=== PATIENT | female | born 1930 | race Caucasian/White ===

== ENCOUNTER 2020-03-08 17:32 | Inpatient (IN) | payer MEDICARE ==
[2020-03-08] MEDS ORDERED: SODIUM CHLORIDE 0.9% 1,000 ML IV STA ×2 (17:44)
[2020-03-08] MEDS ORDERED: IBUPROFEN 600 MG TAB PO STA (17:44)
[2020-03-08] MEDS ORDERED: ACETAMINOPHEN TAB 500 MG TAB PO STA (17:44)
--- NOTE | 2020-03-08 17:45 | ED ---
SOB HPI - General Chief Complaint: Shortness of Breath Stated Complaint: Cough,Fever sent from urgent care Time Seen by Provider: 03/08/20 17:44 Source: patient, RN notes reviewed, old records reviewed Mode of arrival: wheelchair Limitations: no limitations - History of Present Illness Initial Comments: This is an 81-year-old female DF she presents today for evaluation regards to shortness of breath some weakness and fever. Patient has no underlying bleeding disorder. Patient has been staying at [facility] is a new living situation for her. No known positive sick contacts recent hospitalization about 2 months ago after she had a significant follow-up multiple rib fractures. Otherwise patient presents for fever shortness of breath has no other significant complaints MD Complaint: shortness of breath, cough -: days(s) Severity: moderate Severity scale (1-10): 4 Consistency: constant Improves With: nothing Worsens With: nothing Context: recent URI, choking/aspiration, recent illness Associated Symptoms: fever, cough, sputum production, palpitations Treatments Prior to Arrival: none - Related Data Allergies Allergy/AdvReac Type Severity Reaction Status Date / Time Penicillins AdvReac Rash/Hives Verified 03/08/20 17:40 Review of Systems ROS Statement: Those systems with pertinent positive or pertinent negative responses have been documented in the HPI. ROS Other: All systems not noted in ROS Statement are negative. Past Medical History Past Medical History: CVA/TIA, Dementia, Hypertension History of Any Multi-Drug Resistant Organisms: None Reported Past Surgical History: Hernia Repair Past Psychological History: No Psychological Hx Reported Smoking Status: Never smoker Past Alcohol Use History: None Reported Past Drug Use History: None Reported General Exam Limitations: no limitations General appearance: alert, in no apparent distress Head exam: Present: atraumatic, normocephalic, normal inspection Eye exam: Present: normal appearance, PERRL, EOMI. Absent: scleral icterus, conjunctival injection, periorbital swelling ENT exam: Present: normal exam, mucous membranes moist Neck exam: Present: normal inspection. Absent: tenderness, meningismus, lymphadenopathy Respiratory exam: Present: normal lung sounds bilaterally. Absent: respiratory distress, wheezes, rales, rhonchi, stridor Cardiovascular Exam: Present: normal rhythm, tachycardia, normal heart sounds. Absent: systolic murmur, diastolic murmur, rubs, gallop, clicks GI/Abdominal exam: Present: soft, normal bowel sounds. Absent: distended, tenderness, guarding, rebound, rigid Extremities exam: Present: normal inspection, full ROM, normal capillary refill. Absent: tenderness, pedal edema, joint swelling, calf tenderness Back exam: Present: normal inspection Neurological exam: Present: alert, oriented X3, CN II-XII intact Psychiatric exam: Present: normal affect, normal mood Skin exam: Present: warm, dry, intact, normal color. Absent: rash Course Vital Signs 03/08/20 17:36 Temperature 97.5 F L Pulse Rate 116 H Respiratory 20 Rate Blood Pressure 148/80 O2 Sat by Pulse 96 Oximetry - Reevaluation(s) Reevaluation #1: 03/08/20 18:07 Medical records reviewed Reevaluation #2: 03/08/20 19:27 Patient is in no acute distress Reevaluation #3: 03/08/20 19:27 Spoke with family regarding findings and questions are answered Medical Decision Making - Medical Decision Making 81 female DF for evaluation likely pneumonia with effusion. Patient will be admitted for IV antibiotics, breathing treatments as needed and cardiopulmonary observation to rule out covert - Lab Data Result diagrams: 03/08/20 18:28 03/08/20 18:28 Lab Results 03/08/20 03/08/20 03/08/20 Range/Units 18:28 18:28 18:28 WBC 15.7 H (3.8-10.6) k/uL RBC 4.11 (3.80-5.40) m/uL Hgb 12.1 (11.4-16.0) gm/dL Hct 36.6 (34.0-46.0) % MCV 89.1 (80.0-100.0) fL MCH 29.4 (25.0-35.0) pg MCHC 33.0 (31.0-37.0) g/dL RDW 13.3 (11.5-15.5) % Plt Count 322 (150-450) k/uL Neutrophils % 88 % Lymphocytes % 4 % Monocytes % 6 % Eosinophils % 0 % Basophils % 0 % Neutrophils # 13.8 H (1.3-7.7) k/uL Lymphocytes # 0.7 L (1.0-4.8) k/uL Monocytes # 1.0 (0-1.0) k/uL Eosinophils # 0.0 (0-0.7) k/uL Basophils # 0.0 (0-0.2) k/uL PT 10.4 (9.0-12.0) sec INR 1.0 (<1.2) APTT 28.5 (22.0-30.0) sec Sodium 128 L (137-145) mmol/L Potassium 3.5 (3.5-5.1) mmol/L Chloride 98 (98-107) mmol/L Carbon Dioxide 22 (22-30) mmol/L Anion Gap 8 mmol/L BUN 9 (7-17) mg/dL Creatinine 0.36 L (0.52-1.04) mg/dL Est GFR (CKD-EPI)AfAm >90 (>60 ml/min/1.73 sqM) Est GFR (CKD-EPI)NonAf >90 (>60 ml/min/1.73 sqM) Glucose 117 H (74-99) mg/dL Plasma Lactic Acid Marco (0.7-2.0) mmol/L Calcium 9.0 (8.4-10.2) mg/dL Phosphorus 3.1 (2.5-4.5) mg/dL Magnesium 1.7 (1.6-2.3) mg/dL Total Bilirubin 1.4 H (0.2-1.3) mg/dL AST 18 (14-36) U/L ALT 10 (4-34) U/L Alkaline Phosphatase 112 (38-126) U/L Creatine Kinase 67 (30-135) U/L Troponin I (0.000-0.034) ng/mL NT-Pro-B Natriuret Pep pg/mL Total Protein 6.0 L (6.3-8.2) g/dL Albumin 3.3 L (3.5-5.0) g/dL 03/08/20 03/08/20 03/08/20 Range/Units 18:28 18:28 18:28 WBC (3.8-10.6) k/uL RBC (3.80-5.40) m/uL Hgb (11.4-16.0) gm/dL Hct (34.0-46.0) % MCV (80.0-100.0) fL MCH (25.0-35.0) pg MCHC (31.0-37.0) g/dL RDW (11.5-15.5) % Plt Count (150-450) k/uL Neutrophils % % Lymphocytes % % Monocytes % % Eosinophils % % Basophils % % Neutrophils # (1.3-7.7) k/uL Lymphocytes # (1.0-4.8) k/uL Monocytes # (0-1.0) k/uL Eosinophils # (0-0.7) k/uL Basophils # (0-0.2) k/uL PT (9.0-12.0) sec INR (<1.2) APTT (22.0-30.0) sec Sodium (137-145) mmol/L Potassium (3.5-5.1) mmol/L Chloride (98-107) mmol/L Carbon Dioxide (22-30) mmol/L Anion Gap mmol/L BUN (7-17) mg/dL Creatinine (0.52-1.04) mg/dL Est GFR (CKD-EPI)AfAm (>60 ml/min/1.73 sqM) Est GFR (CKD-EPI)NonAf (>60 ml/min/1.73 sqM) Glucose (74-99) mg/dL Plasma Lactic Acid Marco 1.1 (0.7-2.0) mmol/L Calcium (8.4-10.2) mg/dL Phosphorus (2.5-4.5) mg/dL Magnesium (1.6-2.3) mg/dL Total Bilirubin (0.2-1.3) mg/dL AST (14-36) U/L ALT (4-34) U/L Alkaline Phosphatase (38-126) U/L Creatine Kinase (30-135) U/L Troponin I <0.012 (0.000-0.034) ng/mL NT-Pro-B Natriuret Pep 727 pg/mL Total Protein (6.3-8.2) g/dL Albumin (3.5-5.0) g/dL - EKG Data -: EKG Interpreted by Me (EKG shows sinus tach rate of 107 MS 158 QRS 84 QTc 470) - Radiology Data Radiology results: report reviewed (Chest x-rays positive for effusion likely pneumonia), image reviewed Disposition Clinical Impression: Community acquired pneumonia, Pleural effusion Disposition: ADMITTED IP TO THIS HOSP Condition: Good Is patient prescribed a controlled substance at d/c from ED?: No Referrals: Chaparrita Lopez MD [Primary Care Provider] - 1-2 days
[2020-03-08 18:33] LABS: Basophils % (A) 0 %; Eosinophils % (A) 0 %; HCT 36.6 % (34.0-46.0); HGB 12.1 gm/dL (11.4-16.0); Lymphocytes # (A) 0.7 k/uL (1.0-4.8); Lymphocytes % (A) 4 %; MCH 29.4 pg (25.0-35.0); MCV 89.1 fL (80.0-100.0); Mean Platelet Volume 6.5; Monocytes % (A) 6 %; Neutrophils # (A) 13.8 k/uL (1.3-7.7); Neutrophils % (A) 88 %; Platelet Count 322 k/uL (150-450); RBC 4.11 m/uL (3.80-5.40); RDW 13.3 % (11.5-15.5); WBC 15.7 k/uL (3.8-10.6)
--- NOTE | 2020-03-08 18:39 | XR ---
EXAMINATION TYPE: XR chest 2V DATE OF EXAM: 03/08/2020 COMPARISON: None INDICATION: Weakness cough fever short of breath TECHNIQUE: Frontal and lateral views of the chest are obtained. FINDINGS: The heart size is normal. The pulmonary vasculature is normal. There is blunting left costophrenic angle. Small left pleural effusion may be present. Multiple old posterior lateral left-sided rib fractures are evident. No acute rib fractures are ident ified. No pneumothorax is evident. IMPRESSION: 1. There may be a small left pleural effusion.
[2020-03-08 18:41] LABS: ALT 10 U/L (4-34); AST 18 U/L (14-36); African American GFR (CKD) >90 (>60 ml/min/1.73 sqM); Albumin 3.3 g/dL (3.5-5.0); Alkaline Phosphatase 112 U/L (38-126); Anion Gap 8 mmol/L; Blood Urea Nitrogen 9 mg/dL (7-17); Carbon Dioxide 22 mmol/L (22-30); Chloride 98 mmol/L (98-107); Creatine Kinase 67 U/L (30-135); Glucose 117 mg/dL (74-99); Magnesium 1.7 mg/dL (1.6-2.3); Non-African American GFR(CKD) >90 (>60 ml/min/1.73 sqM); Partial Thromboplastin Time 28.5 sec (22.0-30.0); Phosphorus 3.1 mg/dL (2.5-4.5); Potassium 3.5 mmol/L (3.5-5.1); Prothrombin Time 10.4 sec (9.0-12.0); Sodium 128 mmol/L (137-145); Total Bilirubin 1.4 mg/dL (0.2-1.3)
[2020-03-08] MEDS ORDERED: PNEUMONIA PROTOCOL UTILIZED 1 EACH MISC PO PRN (19:23)
[2020-03-08] MEDS ORDERED: IPRATROPIUM-ALBUTEROL 3 ML NEB INHALATION STA (19:23)
[2020-03-08] MEDS ORDERED: AZITHROMYCIN 500 MG in SODIUM CHLORIDE 0.9% 250 ML IVPB STA (19:23)
[2020-03-08] MEDS ORDERED: IPRATROPIUM-ALBUTEROL 3 ML NEB INHALATION PRN (19:23)
[2020-03-08] MEDS: SODIUM CHLORIDE 0.9% 1,000 ML IV SCH (23:42)
[2020-03-09 06:58] LABS: Basophils % (A) 0 %; Eosinophils # (A) 0.1 k/uL (0-0.7); Eosinophils % (A) 1 %; HCT 32.5 % (34.0-46.0); HGB 10.7 gm/dL (11.4-16.0); Lymphocytes # (A) 0.6 k/uL (1.0-4.8); Lymphocytes % (A) 4 %; MCH 29.9 pg (25.0-35.0); MCHC 32.8 g/dL (31.0-37.0); MCV 91.2 fL (80.0-100.0); Mean Platelet Volume 6.4; Monocytes # (A) 0.9 k/uL (0-1.0); Monocytes % (A) 7 %; Neutrophils # (A) 11.9 k/uL (1.3-7.7); Neutrophils % (A) 88 %; Platelet Count 309 k/uL (150-450); RBC 3.56 m/uL (3.80-5.40); RDW 13.7 % (11.5-15.5); WBC 13.6 k/uL (3.8-10.6)
[2020-03-09] MEDS: ENOXAPARIN 40 MG/0.4 ML SYRINGE SQ SCH (09:06)
[2020-03-09] MEDS: AZITHROMYCIN 500 MG TAB PO SCH (09:23)
[2020-03-09 09:48] LABS: African American GFR (CKD) 118.5 (60.0-200.0); Albumin 2.8 g/dL (3.80-4.90); Albumin/Globulin Ratio 1.65 (1.60-3.17); Anion Gap 6.2 mmol/L (4.00-12.00); BUN/Creat Ratio 23.33 Ratio (12.00-20.00); Carbon Dioxide 24.8 mmol/L (21.6-31.8); Globulin 1.7 g/dL (1.6-3.3); Non-African American GFR(CKD) 102.2 (60.0-200.0); Potassium 3.3 mmol/L (3.5-5.5); Total Bilirubin 0.8 mg/dL (0.3-1.2); Total Protein 4.5 g/dL (6.2-8.2)
--- NOTE | 2020-03-09 10:14 | XR ---
EXAMINATION TYPE: XR chest 2V DATE OF EXAM: 03/09/2020 COMPARISON: Chest x-ray from yesterday. HISTORY: Pneumonia, abnormal x-ray. TECHNIQUE: Frontal and lateral views of the chest are obtained. FINDINGS: There is chronic parenchymal change with persistent small left greater than right pleural effusions and associated left basilar atelectasis and/or infiltrate. The cardiac silhouette size rem ains within normal limits without focal sclerotic changes aortic knob. Multiple old posterior left mi d rib fractures redemonstrated. IMPRESSION: Chronic changes with small left greater than right pleural effusions and associated left basilar compressive atelectasis and/or less likely acute infiltrate redemonstrated. No significant c hange from one day earlier.
--- NOTE | 2020-03-09 12:28 | P.CNPUL ---
History of Present Illness Consult date: 03/09/20 Requesting physician: Lea De La Torre Reason for consult: dyspnea, abnormal CXR/CT (Chronic changes with bilateral pleural effusions and compressive atelectasis) Chief complaint: Shortness of breath, fever, sore throat, diarrhea History of present illness: This is a pleasant 89-year-old female patient who follows with Dr. Lopez as her primary care provider. She has a history of dementia, hypertension, CVA/TIA. She is a lifelong nonsmoker. She was brought to the emergency room yesterday from [facility] [place] after being seen in urgent care for cough and fever. Chest x-ray showed chronic changes with small left greater than right pleural effusions and associated left basilar compressive atelectasis. White count 13.6. Hemoglobin 10.7. Sodium 137. Potassium 3.3. Creatinine 0.3. Lactic acid 1.1. She is seen today in consultation on the regular medical floor. She is currently sitting up in a chair at the bedside. Awake and alert in no acute distress. Maintaining O2 saturations in the 90s on 2 L/m per nasal cannula. She's been afebrile. Sputum culture pending. She's been initiated on DuoNeb inhalations, ceftriaxone and azithromycin. Lovenox for DVT prophylaxis. She received 1 L of fluid resuscitation and his son 0.9 normal sinus 100 ML's per hour. Review of Systems REVIEW OF SYSTEMS: CONSTITUTIONAL: Denies any recent significant weight loss or weight gain. EYES: Denies change in vision. EARS, NOSE, MOUTH, THROAT: Sore throat, hoarseness CARDIOVASCULAR: Denies chest pain, palpitations or syncopal episodes. RESPIRATORY: Positive for shortness of breath, cough, congestion no hemoptysis. GASTROINTESTINAL: Denies change in appetite, denies abdominal pain GENITOURINARY: Denies hematuria, denies infections. MUSKULOSKELETAL: Denies pain, denies swelling. INTEGUMENTARY: Denies rash, denies eczema. NEUROLOGICAL: Denies recent memory loss, no recent seizure activity. PSYCHIATRIC: Denies anxiety, denies depression. HEMATOLOGIC/LYMPHATIC: Denies anemia, denies enlarged lymph nodes. Past Medical History Past Medical History: CVA/TIA, Dementia, Hypertension Additional Past Medical History / Comment(s): Fall 01/14/2020- in ICU at [place]. injury to left ribs and right ankle. right ankle foot drop residual. History of Any Multi-Drug Resistant Organisms: None Reported Past Surgical History: Hernia Repair Past Anesthesia/Blood Transfusion Reactions: No Reported Reaction Past Psychological History: No Psychological Hx Reported Additional Psychological History / Comment(s): Patient is a devout [employer]. Had 10 kids. Newly resides at [facility], currently on a trial period. Smoking Status: Never smoker Past Alcohol Use History: None Reported Past Drug Use History: None Reported Medications and Allergies Home Medications Medication Instructions Recorded Confirmed Type Acetaminophen Tab [Tylenol] 650 mg PO Q6H PRN 03/08/20 03/08/20 History Aspirin 81 mg PO HS@199903/08/20 03/08/20 History Donepezil [Aricept] 5 mg PO HS@199903/08/20 03/08/20 History Sodium Chloride Tab 1 gm PO BID 03/08/20 03/08/20 History amLODIPine [Norvasc] 2.5 mg PO DAILY 03/08/20 03/08/20 History Allergies Allergy/AdvReac Type Severity Reaction Status Date / Time Penicillins AdvReac Rash/Hives Verified 03/08/20 19:33 Physical Exam Vitals: Vital Signs Temp Pulse Pulse Resp BP BP Pulse Ox 03/09/20 08:00 92 17 03/09/20 07:00 97.8 F 92 17 150/74 97 03/09/20 03:33 18 95 03/09/20 02:46 20 92 L 03/09/20 01:17 97.9 F 89 18 122/71 97 03/09/20 00:00 90 18 03/08/20 22:05 97.6 F 96 16 115/65 96 03/08/20 21:00 91 18 113/60 96 03/08/20 20:22 97.8 F 03/08/20 19:53 109 H 18 03/08/20 19:47 98 18 138/91 96 03/08/20 19:44 103 H 20 03/08/20 17:36 97.5 F L 116 H 20 148/80 96 Intake and Output 03/08/20 03/09/20 03/09/20 22:59 06:59 14:59 Other: Voiding Method Toilet Toilet Diaper Diaper # Voids 1 Weight 49.442 kg GENERAL EXAM: Alert, pleasant 89-year-old female patient, on 2 L nasal cannula, in chair at the bedside, comfortable in no apparent distress. HEAD: Normocephalic. EYES: Normal reaction of pupils, equal size. NOSE: Clear with pink turbinates. THROAT: No erythema or exudates. NECK: No masses, no JVD. CHEST: No chest wall deformity. LUNGS: Equal air entry with faint crackles in the posterior bases. CVS: S1 and S2 normal with no audible murmur, regular rhythm. ABDOMEN: No hepatosplenomegaly, normal bowel sounds, no guarding or rigidity. SPINE: No scoliosis or deformity SKIN: No rashes CENTRAL NERVOUS SYSTEM: No focal deficits, tone is normal in all 4 extremities. EXTREMITIES: There is no peripheral edema. No clubbing, no cyanosis. Peripheral pulses are intact. Results - Laboratory Findings CBC and BMP: 03/09/20 06:32 03/09/20 06:32 PT/INR, D-dimer PT 10.4 sec (9.0-12.0) 03/08/20 18:28 INR 1.0 (<1.2) 03/08/20 18:28 Abnormal lab findings: Abnormal Labs 03/08/20 03/08/20 03/09/20 18:28 18:28 06:32 WBC 15.7 H 13.6 H RBC 3.56 L Hgb 10.7 L Hct 32.5 L Neutrophils # 13.8 H 11.9 H Lymphocytes # 0.7 L 0.6 L Sodium 128 L Potassium BUN Creatinine 0.36 L BUN/Creatinine Ratio Glucose 117 H Calcium Total Bilirubin 1.4 H AST Total Protein 6.0 L Albumin 3.3 L 03/09/20 06:32 WBC RBC Hgb Hct Neutrophils # Lymphocytes # Sodium Potassium 3.3 L BUN 7.0 L Creatinine 0.3 L BUN/Creatinine Ratio 23.33 H Glucose Calcium 8.0 L Total Bilirubin AST 11 L Total Protein 4.5 L Albumin 2.80 L - Diagnostic Findings Chest x-ray: image reviewed Assessment and Plan Assessment: 1 Purulent tracheobronchitis, sputum culture pending CoVID screen pending 2 Leukocytosis secondary to above 3 Hyponatremia, corrected 4 History of hypertension 5 Dementia Plan: The patient was seen and evaluated by Dr. Santacruz Chest x-rays and labs reviewed Continue ceftriaxone and azithromycin Bronchodilators as needed Sputum culture pending We will continue to follow and make further recommendations based on her clinical status. I, the cosigning physician, performed a history & physical examination of the patient. Lungs sounds faint crackles in the posterior bases. Maintaining good O2 saturations in the 90s on 2 L/m per nasal cannula. I discussed the assessment and plan of care with my nurse practitioner, Shannan Katz. I attest to the above consultation as dictated by her. Time with Patient: Greater than 30
[2020-03-09] MEDS ORDERED: HYDROcodone/APAP 5-325MG 1 EACH TAB PO PRN (14:04)
[2020-03-09] MEDS ORDERED: ALPRAZolam 0.25 MG TAB PO PRN (14:04)
[2020-03-09] MEDS ORDERED: Potassium Replacement Protocol 1 EACH MISC MISCELLANE PRN (14:05)
[2020-03-09] MEDS ORDERED: Magnesium Replacement Protocol 1 EACH MISC MISCELLANE PRN (14:05)
[2020-03-09 14:24] VITALS: BMI 18.7
--- NOTE | 2020-03-09 14:42 | HP ---
HISTORY AND PHYSICAL CHIEF COMPLAINT: Shortness of breath and cough. HISTORY OF PRESENT ILLNESS: This 89-year-old woman with a past medical history of multiple medical problems including CVA, TIA, dementia, history of hypertension, was recently in [facility] ICU because of injury to the left ribs and left ankle and right ankle footdrop residual was noted and the patient apparently was having inpatient rehab at [facility]. The patient is complaining of some shortness of breath and fever and cough. The patient came to [facility] and was admitted for further evaluation and treatment. Possible pneumonia with pleural effusion suspected. Pulmonology evaluation in progress. There is no history of any fever, rigors, chills. No history of headache, loss of consciousness, seizures. PAST MEDICAL HISTORY: History of CVA, TIA, dementia, hypertension, history of recent rib fractures. MEDICATIONS: Norvasc, sodium chloride tablet, Aricept, aspirin, Tylenol. ALLERGIES: PENICILLIN. FAMILY HISTORY: No history of heart disease or strokes in the family. SOCIAL HISTORY: No history of smoking. No history of alcohol intake. No substance abuse. REVIEW OF SYSTEMS: ENT: No diminished vision or hearing. CARDIOVASCULAR: No angina or palpitations. RESPIRATORY: As mentioned earlier. GI: As mentioned earlier. : Negative. NERVOUS SYSTEM: As mentioned earlier. ALLERGY/IMMUNOLOGY: No asthma or hayfever. MUSCULOSKELETAL: As mentioned earlier. MUSCULOSKELETAL: As mentioned earlier. HEMATOLOGY/ONCOLOGY: History of anemia. ENDOCRINE: No history of diabetes or hypothyroidism. CONSTITUTIONAL: As mentioned earlier. DERMATOLOGY: Negative. RHEUMATOLOGY: Negative. PSYCHIATRY: As mentioned earlier. PHYSICAL EXAM: Patient is alert, oriented x3. The pulse is 92, blood pressure 150/74, respiration 17, temperature 97.8, pulse ox 97% on 3 L. HEENT: Conjunctivae normal. NECK: No JVD. CARDIOVASCULAR: S1 and S2 muffled. RESPIRATORY: Diminished breath sounds in the bases with a few scattered rhonchi and crackles. Expiratory wheezing also present. ABDOMEN: Soft, nontender. EXTREMITIES: Legs no edema, no swelling. NERVOUS SYSTEM: Higher functions as mentioned earlier. Moves all 4 limbs, no focal deficits. LYMPHATICS: No lymph nodes in the neck or axillae. SKIN: No ulcers or rashes. JOINTS: No active deforming arthropathy. LABS: WBC 13.2, hemoglobin 10.7 sodium 137, potassium 3.3 and glucose 117. The albumin is 2.8. ASSESSMENT: 1. Chronic obstructive pulmonary disease acute exacerbation with possible acute purulent tracheobronchitis, possible acute bronchopneumonia bilateral. 2. Left pleural effusion. 3. Hyponatremia. 4. Increased WBC. 5. Hypokalemia. 6. History of cerebrovascular accident and transient ischemic attack. 7. History of dementia. 8. Hypertension. 9. History of recent fall and injury to the left rib and right ankle. 10.History of hernia repair. 11.Gait dysfunction. RECOMMENDATIONS AND DISCUSSION: In this 89-year-old woman who was admitted with multiple medical issues, at this time I recommend to continue current medications. We will optimize bronchodilators, empiric antibiotics and IV steroids. Follow with Pulmonary. Will monitor the chest x-ray and pleural effusion also. Otherwise, COVID-19 will be tested. Home medications will be continued. Prognosis is extremely guarded because of multiple complex medical issues. Further recommendations to follow. MMODL / IJN: [id number] /
[2020-03-09] MEDS: methylPREDNISolone SOD SUCCI 125 MG/2 ML VIAL IV SCH ×2 (15:49→17:03)
[2020-03-09] MEDS: POTASSIUM CHLORIDE ER 20 MEQ TAB.ER PO SCH ×2 (15:50→17:03)
[2020-03-09 16:32] LABS: Glucose,Whole Blood 112 mg/dL (75-99)
[2020-03-09] MEDS: INSULIN ASPART (NovoLOG) 100 UNIT/ML VIAL SQ SCH ×2 (16:42→22:06)
[2020-03-09] MEDS: ASPIRIN 81 MG PO SCH (19:47)
[2020-03-09] MEDS: DONEPEZIL 5 MG TAB PO SCH (19:47)
[2020-03-09] MEDS: SODIUM CHLORIDE TAB 1 GM TAB PO SCH (19:47)
[2020-03-09 21:22] LABS: Glucose,Whole Blood 182 mg/dL (75-99)
[2020-03-10] MEDS: methylPREDNISolone SOD SUCCI 125 MG/2 ML VIAL IV SCH ×4 (00:52→17:29)
[2020-03-10] MEDS: SODIUM CHLORIDE 0.9% 1,000 ML IV SCH (00:55)
[2020-03-10 06:49] LABS: Basophils % (A) 0 %; Eosinophils % (A) 0 %; HCT 35.2 % (34.0-46.0); HGB 11.9 gm/dL (11.4-16.0); Lymphocytes # (A) 0.4 k/uL (1.0-4.8); Lymphocytes % (A) 5 %; MCHC 33.9 g/dL (31.0-37.0); MCV 91.4 fL (80.0-100.0); Mean Platelet Volume 6.6; Monocytes # (A) 0.2 k/uL (0-1.0); Monocytes % (A) 2 %; Neutrophils # (A) 7.5 k/uL (1.3-7.7); Neutrophils % (A) 92 %; Platelet Count 358 k/uL (150-450); RBC 3.86 m/uL (3.80-5.40); RDW 13.7 % (11.5-15.5); WBC 8.1 k/uL (3.8-10.6)
[2020-03-10] MEDS: PANTOPRAZOLE 40 MG TABLET PO SCH (07:17)
[2020-03-10] MEDS: amLODIPine 2.5 MG TAB PO SCH (07:17)
[2020-03-10] MEDS: SODIUM CHLORIDE TAB 1 GM TAB PO SCH ×2 (07:17→22:26)
[2020-03-10] MEDS: AZITHROMYCIN 500 MG TAB PO SCH (07:17)
[2020-03-10 07:19] LABS: Glucose,Whole Blood 146 mg/dL (75-99)
[2020-03-10] MEDS: ENOXAPARIN 40 MG/0.4 ML SYRINGE SQ SCH (07:20)
[2020-03-10] MEDS: INSULIN ASPART (NovoLOG) 100 UNIT/ML VIAL SQ SCH ×4 (08:40→22:25)
[2020-03-10 09:47] LABS: African American GFR (CKD) 118.5 (60.0-200.0); Anion Gap 7.5 mmol/L (4.00-12.00); BUN/Creat Ratio 33.33 Ratio (12.00-20.00); Calcium 8.5 mg/dL (8.7-10.3); Carbon Dioxide 24.5 mmol/L (21.6-31.8); Magnesium 1.6 mg/dL (1.5-2.4); Non-African American GFR(CKD) 102.2 (60.0-200.0); Potassium 3.7 mmol/L (3.5-5.5)
[2020-03-10 11:47] LABS: Glucose,Whole Blood 146 mg/dL (75-99)
--- NOTE | 2020-03-10 13:21 | P.PN ---
Subjective Progress Note Date: 03/10/20 Principal diagnosis: Purulent tracheobronchitis. This is a pleasant 89-year-old female patient who follows with Dr. Lopez as her primary care provider. She has a history of dementia, hypertension, CVA/TIA. She is a lifelong nonsmoker. She was brought to the emergency room yesterday from [facility] on the [place] after being seen in urgent care for cough and fever. Chest x-ray showed chronic changes with small left greater than right pleural effusions and associated left basilar compressive atelectasis. White count 13.6. Hemoglobin 10.7. Sodium 137. Potassium 3.3. Creatinine 0.3. Lactic acid 1.1. She is seen today in consultation on the regular medical floor. She is currently sitting up in a chair at the bedside. Awake and alert in no acute distress. Maintaining O2 saturations in the 90s on 2 L/m per nasal cannula. She's been afebrile. Sputum culture pending. She's been initiated on DuoNeb inhalations, ceftriaxone and azithromycin. Lovenox for DVT prophylaxis. She received 1 L of fluid resuscitation and his son 0.9 normal sinus 100 ML's per hour. Patient is seen today 12/09 2019 in follow-up on the medical floor. She is currently sitting up in a chair at the bedside. Awake and alert in no acute distress. Breathing easier today as compared to yesterday. Maintaining good O2 saturation in the mid 90s on room air. She's been afebrile. Hemodynamically stable. Blood and sputum cultures pending. White count 8.1. Hemoglobin 11.9. 7. Potassium 3.7. Creatinine 0.3. CoVID 19 screen still pending. She remains on ceftriaxone and azithromycin. Objective - Vital Signs Vital signs: Vital Signs Temp 97.5 F L 03/10/20 07:00 Pulse 87 03/10/20 08:00 Resp 16 03/10/20 08:00 BP 146/72 03/10/20 07:00 Pulse Ox 98 03/10/20 07:00 Intake & Output 03/09/20 03/10/20 03/10/20 18:59 06:59 18:59 Intake Total 220 Balance 220 Weight 49.442 kg Intake: Oral 220 Other: Voiding Method Toilet Toilet Toilet Diaper Diaper Diaper # Voids 3 1 1 # Bowel Movements 2 - Exam GENERAL EXAM: Alert, pleasant 89-year-old female patient, on room air, in chair at the bedside, comfortable in no apparent distress. HEAD: Normocephalic. EYES: Normal reaction of pupils, equal size. NOSE: Clear with pink turbinates. THROAT: No erythema or exudates. NECK: No masses, no JVD. CHEST: No chest wall deformity. LUNGS: Equal air entry with faint crackles in the posterior bases. CVS: S1 and S2 normal with no audible murmur, regular rhythm. ABDOMEN: No hepatosplenomegaly, normal bowel sounds, no guarding or rigidity. SPINE: No scoliosis or deformity SKIN: No rashes CENTRAL NERVOUS SYSTEM: No focal deficits, tone is normal in all 4 extremities. EXTREMITIES: There is no peripheral edema. No clubbing, no cyanosis. Peripheral pulses are intact. - Labs CBC & Chem 7: 03/10/20 06:26 03/10/20 06:26 Labs: Abnormal Lab Results - Last 24 Hours (Table) 03/09/20 03/09/20 03/10/20 Range/Units 16:29 21:20 06:26 Lymphocytes # 0.4 L (1.0-4.8) k/uL Creatinine (0.6-1.5) mg/dL BUN/Creatinine Ratio (12.00-20.00) Ratio Glucose (70-110) mg/dL POC Glucose (mg/dL) 112 H 182 H (75-99) mg/dL Calcium (8.7-10.3) mg/dL 03/10/20 03/10/20 03/10/20 Range/Units 06:26 07:15 11:24 Lymphocytes # (1.0-4.8) k/uL Creatinine 0.3 L (0.6-1.5) mg/dL BUN/Creatinine Ratio 33.33 H (12.00-20.00) Ratio Glucose 150 H (70-110) mg/dL POC Glucose (mg/dL) 146 H 146 H (75-99) mg/dL Calcium 8.5 L (8.7-10.3) mg/dL Microbiology - Last 24 Hours (Table) 03/09/20 03:31 Gram Stain - Preliminary Sputum Sputum Culture - Preliminary 03/08/20 20:06 Blood Culture - Preliminary Blood No Growth after 24 hours 03/08/20 18:28 Blood Culture - Preliminary Blood No Growth after 24 hours Assessment and Plan Assessment: 1 Purulent tracheobronchitis, sputum culture pending, CoVID screen pending 2 Leukocytosis secondary to above 3 Hyponatremia, corrected 4 History of hypertension 5 Dementia Plan: The patient was seen and evaluated by Dr. Noam Salazar from the pulmonary standpoint, on room air Continue ceftriaxone and azithromycin Bronchodilators as needed Sputum culture pending We will continue to follow and make further recommendations based on her clinical status. I, the cosigning physician, performed a history & physical examination of the patient. Lungs sounds faint crackles in the posterior bases. Maintaining good O2 saturations in the 90s on room air. I discussed the assessment and plan of care with my nurse practitioner, Shannan Katz. I attest to the above consultation as dictated by her.
[2020-03-10 16:56] LABS: Glucose,Whole Blood 199 mg/dL (75-99)
[2020-03-10] MEDS ORDERED: POTASSIUM CHLORIDE ER 20 MEQ TAB.ER PO STA (19:03)
[2020-03-10 21:40] LABS: Glucose,Whole Blood 174 mg/dL (75-99)
[2020-03-10] MEDS: ASPIRIN 81 MG PO SCH (22:25)
[2020-03-10] MEDS: DONEPEZIL 5 MG TAB PO SCH (22:26)
--- NOTE | 2020-03-10 22:50 | PN ---
PROGRESS NOTE DATE OF SERVICE: 03/10/2020 This 89-year-old woman was admitted with shortness of breath possibly COPD exacerbation as well as possible bronchopneumonia and as well as left pleural effusion. Multiple evaluation has been recommended at this time. The patient was started on IV antibiotics. Dr. Santacruz is following the patient closely. The repeat chest x-ray which was personally reviewed by me showed some pleural effusion on the left side. PAST MEDICAL HISTORY: Reviewed. REVIEW OF SYSTEMS: CARDIOVASCULAR SYSTEM: No angina. RESPIRATORY SYSTEM: As mentioned earlier. GI: As mentioned earlier. : No dysuria. NERVOUS SYSTEM: No numbness or weakness. CURRENT MEDICATIONS: Current medications are reviewed and include [place], DuoNeb, Xanax, Norvasc, aspirin, Zithromax, Rocephin, Aricept, Lovenox, NovoLog, Solu-Medrol, magnesium replacement, and Protonix. PHYSICAL EXAMINATION: Patient is alert and oriented x3. Pulse is 109, blood pressure 143/72, respiration 20, temperature 98.7, pulse ox 94% on room air. HEENT: Conjunctivae normal. NECK: No jugular venous distention. CARDIOVASCULAR: S1, S2 muffled. RESPIRATORY: Breath sounds diminished at the bases. Bilateral scattered rhonchi and crackles. ABDOMEN: Soft, nontender. LEGS: No edema. No swelling. NERVOUS SYSTEM: No focal deficits. LABS: WBC 8.1, hemoglobin 11.9 and glucose 150. ASSESSMENT: 1. Chronic obstructive pulmonary disease acute exacerbation with possible acute purulent tracheobronchitis, possible acute bronchopneumonia bilateral. 2. Left pleural effusion. 3. Hyponatremia. 4. Increased WBC. 5. Hypokalemia. 6. History of cerebrovascular accident , transient ischemic attack. 7. History of dementia. 8. Hypertension. 9. History of recent fall, injury to the rib and right ankle. 10.History of hernia repair. 11.Gait dysfunction. RECOMMENDATIONS AND DISCUSSION: Recommend to continue the current medications. Follow closely with Dr. Santacruz. COVID- 19 is negative. Otherwise, prognosis guarded. Further recommendations to follow. See orders for further details. MMODL / IJN: [id number] /
[2020-03-11] MEDS: methylPREDNISolone SOD SUCCI 125 MG/2 ML VIAL IV SCH ×4 (00:49→18:06)
[2020-03-11 06:41] LABS: Basophils % (A) 0 %; Eosinophils % (A) 0 %; HCT 34.3 % (34.0-46.0); HGB 11.3 gm/dL (11.4-16.0); Lymphocytes # (A) 0.4 k/uL (1.0-4.8); Lymphocytes % (A) 3 %; MCH 29.8 pg (25.0-35.0); MCHC 33.1 g/dL (31.0-37.0); MCV 89.9 fL (80.0-100.0); Mean Platelet Volume 6.3; Monocytes # (A) 0.4 k/uL (0-1.0); Monocytes % (A) 3 %; Neutrophils # (A) 11.5 k/uL (1.3-7.7); Neutrophils % (A) 93 %; Platelet Count 385 k/uL (150-450); RBC 3.81 m/uL (3.80-5.40); RDW 13.6 % (11.5-15.5); WBC 12.4 k/uL (3.8-10.6)
[2020-03-11 07:20] LABS: Glucose,Whole Blood 131 mg/dL (75-99)
[2020-03-11] MEDS: INSULIN ASPART (NovoLOG) 100 UNIT/ML VIAL SQ SCH ×4 (08:12→20:57)
[2020-03-11] MEDS: ENOXAPARIN 40 MG/0.4 ML SYRINGE SQ SCH (08:12)
[2020-03-11] MEDS: PANTOPRAZOLE 40 MG TABLET PO SCH (08:13)
[2020-03-11] MEDS: amLODIPine 2.5 MG TAB PO SCH (08:13)
[2020-03-11] MEDS: SODIUM CHLORIDE TAB 1 GM TAB PO SCH ×2 (08:13→20:57)
[2020-03-11] MEDS: AZITHROMYCIN 500 MG TAB PO SCH (08:13)
--- NOTE | 2020-03-11 08:29 | US ---
EXAMINATION TYPE: US chest DATE OF EXAM: 03/11/2020 COMPARISON: x ray 2 days ago. CLINICAL HISTORY: pleural effusion . Abnormal x-ray. TECHNIQUE: Targeted ultrasound of the posterior chest EXAM MEASUREMENTS: Right Pleural Effusion pocket size: 1.0cm A/P Left Pleural Effusion pocket size: 3.2cm A/P Left skin surface to fluid distance: 3.3cm A/P Right side was not marked for possible thoracentesis outside the dept. Left side was not marked for possible thoracentesis outside the dept. Pulmonologists are able to review the images in the patient?s EMR. Tiny bilateral pleural effusions on the images saved. IMPRESSIONS: As above.
[2020-03-11 09:11] LABS: African American GFR (CKD) 118.5 (60.0-200.0); Anion Gap 5.5 mmol/L (4.00-12.00); Calcium 8.5 mg/dL (8.7-10.3); Carbon Dioxide 26.5 mmol/L (21.6-31.8); Non-African American GFR(CKD) 102.2 (60.0-200.0); Potassium 4.2 mmol/L (3.5-5.5)
--- NOTE | 2020-03-11 10:50 | ECHOF ---
Referral Reason:chf MEASUREMENTS -------- HEIGHT: 162.6 cm WEIGHT: 49.4 kg BP: 153/85 RVIDd: 2.7 cm (< 3.3) IVSd: 1.1 cm (0.6 - 1.1) LVIDd: 3.2 cm (3.9 - 5.3) LVPWd: 1.2 cm (0.6 - 1.1) IVSs: 1.5 cm LVIDs: 2.3 cm LVPWs: 1.6 cm LA Diam: 3.3 cm (2.7 - 3.8) LAESV Index (A-L): 31.73 ml/m Ao Diam: 3.1 cm (2.0 - 3.7) AV Cusp: 1.5 cm (1.5 - 2.6) MV EXCURSION: 14.013 mm (> 18.000) MV EF SLOPE: 39 mm/s (70 - 150) EPSS: 0.8 cm MV E Shaka: 0.92 m/s MV DecT: 158 ms MV A Shaka: 1.26 m/s MV E/A Ratio: 0.73 RAP: 5.00 mmHg RVSP: 23.14 mmHg FINDINGS -------- Sinus rhythm. This was a technically good study. The left ventricular size is normal. There is borderline concentric left ventricular hypertrophy. Overall left ventricular systolic function is normal with, an EF between 55 - 60 %. Sigmoid shaped septum with focal hypertrophy of the basal septum. The remaining wall thickness is normal. The right ventricle is normal in size. LA is midly dilated 29-33ml/m2. The right atrium is normal in size. Interatrial and interventricular septum intact. Aortic valve is trileaflet and is mildly thickened. The mitral valve leaflets are mildly thickened. Mild mitral regurgitation is present. Mild tricuspid regurgitation present. Right ventricular systolic pressure is normal at < 35 mmHg. The aortic root size is normal. Normal inferior vena cava with normal inspiratory collapse consistent with estimated right atrial pre ssure of 5 mmHg. There is no pericardial effusion. CONCLUSIONS -------- 1. The left ventricular size is normal. 2. There is borderline concentric left ventricular hypertrophy. 3. Overall left ventricular systolic function is normal with, an EF between 55 - 60 %. 4. Sigmoid shaped septum with focal hypertrophy of the basal septum. The remaining wall thickness is normal. 5. LA is midly dilated 29-33ml/m2. 6. Aortic valve is trileaflet and is mildly thickened. 7. The mitral valve leaflets are mildly thickened. 8. Mild mitral regurgitation is present. 9. Mild tricuspid regurgitation present. 10. There is no pericardial effusion. MAIL HANDLER: Krista De La Vega RDCS
[2020-03-11 11:12] LABS: Glucose,Whole Blood 156 mg/dL (75-99)
--- NOTE | 2020-03-11 16:45 | P.PN ---
Subjective Progress Note Date: 03/11/20 Principal diagnosis: Purulent tracheobronchitis This is a pleasant 89-year-old female patient who follows with Dr. Lopez as her primary care provider. She has a history of dementia, hypertension, CVA/TIA. She is a lifelong nonsmoker. She was brought to the emergency room yesterday from [facility] on the [place] after being seen in urgent care for cough and fever. Chest x-ray showed chronic changes with small left greater than right pleural effusions and associated left basilar compressive atelectasis. White count 13.6. Hemoglobin 10.7. Sodium 137. Potassium 3.3. Creatinine 0.3. Lactic acid 1.1. She is seen today in consultation on the regular medical floor. She is currently sitting up in a chair at the bedside. Awake and alert in no acute distress. Maintaining O2 saturations in the 90s on 2 L/m per nasal cannula. She's been afebrile. Sputum culture pending. She's been initiated on DuoNeb inhalations, ceftriaxone and azithromycin. Lovenox for DVT prophylaxis. She received 1 L of fluid resuscitation and his son 0.9 normal sinus 100 ML's per hour. Patient is seen today 12/09 2019 in follow-up on the medical floor. She is currently sitting up in a chair at the bedside. Awake and alert in no acute distress. Breathing easier today as compared to yesterday. Maintaining good O2 saturation in the mid 90s on room air. She's been afebrile. Hemodynamically stable. Blood and sputum cultures pending. White count 8.1. Hemoglobin 11.9. 7. Potassium 3.7. Creatinine 0.3. CoVID 19 screen still pending. She remains on ceftriaxone and azithromycin. On 03/11/2020 patient seen in follow-up on general medical surgical floor. She is awake and alert, in no acute distress, her lung sounds are clear, no rhonchi no wheezing, she does have a week dry cough, breathing seems to be comfortable, no acute distress, she is currently on room air, with a pulse ox of 92-93%, no fever or chills, she is short of breath with exertion, breathing comfortable at rest. Her blood and sputum cultures have shown no growth. She continues on IV steroids, nebulized bronchodilators and azithromycin, will continue with the same medical treatment. Ultrasound the chest reviewed and did not show significant pleural effusion pocket on either side. Objective - Vital Signs Vital signs: Vital Signs Temp 98.2 F 03/11/20 15:00 Pulse 99 03/11/20 15:00 Resp 20 03/11/20 15:00 BP 151/74 03/11/20 15:00 Pulse Ox 92 L 03/11/20 15:00 Intake & Output 03/10/20 03/11/20 03/11/20 18:59 06:59 18:59 Intake Total 220 Balance 220 Intake: Oral 220 Other: Voiding Method Toilet Toilet Toilet Diaper Diaper Diaper # Voids 2 2 2 - Exam GENERAL EXAM: Alert, active, very pleasant, frail looking, elderly white fema le, on room air, with a pulse ox 93% comfortable in no apparent distress. HEAD: Normocephalic/atraumatic. EYES: Normal reaction of pupils, equal size. Conjunctiva pink, sclera white. NOSE: Clear with pink turbinates. THROAT: No erythema or exudates. NECK: No masses, no JVD, no thyroid enlargement, no adenopathy. CHEST: No chest wall deformity. Symmetrical expansion. LUNGS: Equal air entry with no crackles, wheeze, rhonchi or dullness. CVS: Regular rate and rhythm, normal S1 and S2, no gallops, no murmurs, no rubs ABDOMEN: Soft, nontender. No hepatosplenomegaly, normal bowel sounds, no guar ding or rigidity. EXTREMITIES: No clubbing, no edema, no cyanosis, 2+ pulses and upper and lower extremities. MUSCULOSKELETAL: Muscle strength and tone normal. SPINE: No scoliosis or deformity SKIN: No rashes CENTRAL NERVOUS SYSTEM: Alert and oriented -3. No focal deficits, tone is normal in all 4 extremities. PSYCHIATRIC: Alert and oriented -3. Appropriate affect. Intact judgment and insight. - Labs CBC & Chem 7: 03/11/20 06:12 03/11/20 06:12 Labs: Abnormal Lab Results - Last 24 Hours (Table) 03/10/20 03/10/20 03/11/20 Range/Units 16:41 21:37 06:12 WBC 12.4 H (3.8-10.6) k/uL Hgb 11.3 L (11.4-16.0) gm/dL Neutrophils # 11.5 H (1.3-7.7) k/uL Lymphocytes # 0.4 L (1.0-4.8) k/uL Creatinine (0.6-1.5) mg/dL BUN/Creatinine Ratio (12.00-20.00) Ratio Glucose (70-110) mg/dL POC Glucose (mg/dL) 199 H 174 H (75-99) mg/dL Calcium (8.7-10.3) mg/dL 03/11/20 03/11/20 03/11/20 Range/Units 06:12 07:03 11:11 WBC (3.8-10.6) k/uL Hgb (11.4-16.0) gm/dL Neutrophils # (1.3-7.7) k/uL Lymphocytes # (1.0-4.8) k/uL Creatinine 0.3 L (0.6-1.5) mg/dL BUN/Creatinine Ratio 60.00 H (12.00-20.00) Ratio Glucose 133 H (70-110) mg/dL POC Glucose (mg/dL) 131 H 156 H (75-99) mg/dL Calcium 8.5 L (8.7-10.3) mg/dL Microbiology - Last 24 Hours (Table) 03/09/20 03:31 Gram Stain - Final Sputum Sputum Culture - Final 03/08/20 20:06 Blood Culture - Preliminary Blood No Growth after 48 hours 03/08/20 18:28 Blood Culture - Preliminary Blood No Growth after 48 hours Assessment and Plan Plan: Assessment: 1 Purulent tracheobronchitis, sputum culture pending, CoVID screen pending 2 Leukocytosis secondary to above 3 Hyponatremia, corrected 4 History of hypertension 5 Dementia Plan Patient is doing well, no significant cough or congestion, lung sounds are clear, she is on room air, increase activity as tolerated, continue current medical treatment, her sputum and blood cultures have been negative, she's had no fever or chills. From pulmonary perspective she can be considered for discharge home in the next 24 hours I performed a history & physical examination of the patient and discussed their management with my nurse practitioner, Merlene Wood. I reviewed the nurse practitioner's note and agree with the documented findings and plan of care. Lung sounds are positive for clear breath sounds. The findings and the impression was discussed with the patient. I attest to the documentation by the nurse practitioner. Time with Patient: Less than 30
[2020-03-11 16:47] LABS: Glucose,Whole Blood 123 mg/dL (75-99)
--- NOTE | 2020-03-11 18:52 | PN ---
PROGRESS NOTE DATE OF SERVICE: 03/11/2020 This 89-year-old woman who was admitted with COPD, acute exacerbation, as well as purulent tracheobronchitis, also had bronchopneumonia. Patient also had some left pleural effusion. No chest pain. No palpitations. No fever. A 2D echo with Doppler was done by Cardiology which showed ejection fraction about 55% to 60% and mild valvular abnormalities. No chest pain. No palpitations. No fever. PHYSICAL EXAMINATION: Alert and oriented x3. Pulse is 99, blood pressure 151/74, respiration 20, temperature 98.2, pulse ox 92% on room air. HEENT: Conjunctivae normal. NECK: No jugular venous distention. CARDIOVASCULAR SYSTEM: S1, S2 muffled. RESPIRATORY SYSTEM: Breath sounds diminished at the bases. A few scattered rhonchi and crackles. ABDOMEN: Soft, non-tender. LEGS: No edema. No swelling. NERVOUS SYSTEM: No focal deficit. LABS: WBC 12.4. Glucose 133. ASSESSMENT: 1. Chronic obstructive pulmonary disease, acute exacerbation, with possible acute purulent tracheobronchitis with possible acute bronchopneumonia, bilateral. 2. Left pleural effusion. 3. Hyponatremia. 4. Increased white count. 5. Hypokalemia. 6. History of cerebrovascular accident, transient ischemic attack. 7. History of dementia. 8. Hypertension. 9. History of recent fall and injury to the rib and right ankle. 10.History of hernia repair. 11.Gait dysfunction. 12.FULL CODE WITH INSTRUCTIONS. RECOMMENDATIONS AND DISCUSSION: I recommend to continue current medications, continue with the monitoring, symptomatic treatment. Continue with antibiotics. PT/OT evaluation, possible ECF rehab. Guarded prognosis. Further recommendations to follow. MMODL / IJN: [id number] /
[2020-03-11 20:50] LABS: Glucose,Whole Blood 190 mg/dL (75-99)
[2020-03-11] MEDS: DONEPEZIL 5 MG TAB PO SCH (20:57)
[2020-03-11] MEDS: ASPIRIN 81 MG PO SCH (20:57)
[2020-03-12] MEDS: methylPREDNISolone SOD SUCCI 125 MG/2 ML VIAL IV SCH ×3 (00:50→11:09)
[2020-03-12 07:06] LABS: Glucose,Whole Blood 118 mg/dL (75-99)
[2020-03-12 07:21] LABS: Basophils % (A) 0 %; Eosinophils % (A) 0 %; HCT 34.9 % (34.0-46.0); HGB 11.5 gm/dL (11.4-16.0); Lymphocytes # (A) 0.5 k/uL (1.0-4.8); Lymphocytes % (A) 4 %; MCH 29.6 pg (25.0-35.0); MCHC 32.8 g/dL (31.0-37.0); MCV 90.2 fL (80.0-100.0); Mean Platelet Volume 6.6; Monocytes # (A) 0.4 k/uL (0-1.0); Monocytes % (A) 4 %; Neutrophils # (A) 10.1 k/uL (1.3-7.7); Neutrophils % (A) 91 %; Platelet Count 414 k/uL (150-450); RBC 3.87 m/uL (3.80-5.40); RDW 13.8 % (11.5-15.5)
[2020-03-12 07:25] VITALS: BP 152/71; PULSE 74; RESP 20; TEMP 98.2
[2020-03-12] MEDS: INSULIN ASPART (NovoLOG) 100 UNIT/ML VIAL SQ SCH ×2 (07:30→12:40)
[2020-03-12] MEDS: PANTOPRAZOLE 40 MG TABLET PO SCH (07:47)
[2020-03-12] MEDS: ENOXAPARIN 40 MG/0.4 ML SYRINGE SQ SCH (09:05)
[2020-03-12] MEDS: AZITHROMYCIN 500 MG TAB PO SCH (09:05)
[2020-03-12] MEDS: SODIUM CHLORIDE TAB 1 GM TAB PO SCH (09:06)
[2020-03-12] MEDS: amLODIPine 2.5 MG TAB PO SCH (09:07)
[2020-03-12 11:22] LABS: Glucose,Whole Blood 137 mg/dL (75-99)
[2020-03-12 11:42] LABS: African American GFR (CKD) 118.5 (60.0-200.0); Calcium 8.6 mg/dL (8.7-10.3); Non-African American GFR(CKD) 102.2 (60.0-200.0)
--- NOTE | 2020-03-12 15:20 | P.PN ---
Subjective Progress Note Date: 03/12/20 Principal diagnosis: Purulent tracheobronchitis This is a pleasant 89-year-old female patient who follows with Dr. Lopez as her primary care provider. She has a history of dementia, hypertension, CVA/TIA. She is a lifelong nonsmoker. She was brought to the emergency room yesterday from [facility] on the [place] after being seen in urgent care for cough and fever. Chest x-ray showed chronic changes with small left greater than right pleural effusions and associated left basilar compressive atelectasis. White count 13.6. Hemoglobin 10.7. Sodium 137. Potassium 3.3. Creatinine 0.3. Lactic acid 1.1. She is seen today in consultation on the regular medical floor. She is currently sitting up in a chair at the bedside. Awake and alert in no acute distress. Maintaining O2 saturations in the 90s on 2 L/m per nasal cannula. She's been afebrile. Sputum culture pending. She's been initiated on DuoNeb inhalations, ceftriaxone and azithromycin. Lovenox for DVT prophylaxis. She received 1 L of fluid resuscitation and his son 0.9 normal sinus 100 ML's per hour. Patient is seen today 12/09 2019 in follow-up on the medical floor. She is currently sitting up in a chair at the bedside. Awake and alert in no acute distress. Breathing easier today as compared to yesterday. Maintaining good O2 saturation in the mid 90s on room air. She's been afebrile. Hemodynamically stable. Blood and sputum cultures pending. White count 8.1. Hemoglobin 11.9. 7. Potassium 3.7. Creatinine 0.3. CoVID 19 screen still pending. She remains on ceftriaxone and azithromycin. On 03/11/2020 patient seen in follow-up on general medical surgical floor. She is awake and alert, in no acute distress, her lung sounds are clear, no rhonchi no wheezing, she does have a week dry cough, breathing seems to be comfortable, no acute distress, she is currently on room air, with a pulse ox of 92-93%, no fever or chills, she is short of breath with exertion, breathing comfortable at rest. Her blood and sputum cultures have shown no growth. She continues on IV steroids, nebulized bronchodilators and azithromycin, will continue with the same medical treatment. Ultrasound the chest reviewed and did not show significant pleural effusion pocket on either side. On 03/12/2020 patient seen in follow-up on a general medical surgical floor, she is resting comfortably in recliner, she is in no acute distress, room air pulse ox is 91-94%, hemodynamically stable, she's been afebrile, breathing seems to be comfortable, her respirations are shallow, lung sounds are diminished at the bases, no significant rhonchi or wheezing. She's had no acute events overnight, denies any chest pain, no hemoptysis. Her sputum blood cultures have been negative, patient has been treated with a combination of IV steroids, nebulized bronchodilators, and azithromycin, ultrasound the chest did not reveal significant pleural effusion pocket on either side for drainage. She is clinically stable, arrangements are in progress for placement to ECF possibly today Objective - Vital Signs Vital signs: Vital Signs Temp 98.2 F 03/12/20 07:00 Pulse 74 03/12/20 07:00 Resp 20 03/12/20 08:00 BP 152/71 03/12/20 07:00 Pulse Ox 91 L 03/12/20 07:00 Intake & Output 03/11/20 03/12/20 03/12/20 18:59 06:59 18:59 Intake Total 640 Balance 640 Intake: Oral 640 Other: Voiding Method Toilet Toilet Diaper Diaper # Voids 2 1 - Exam GENERAL EXAM: Alert, active, very pleasant, frail looking, elderly white female, on room air, with a pulse ox 93% comfortable in no apparent distress. HEAD: Normocephalic/atraumatic. EYES: Normal reaction of pupils, equal size. Conjunctiva pink, sclera white. NOSE: Clear with pink turbinates. THROAT: No erythema or exudates. NECK: No masses, no JVD, no thyroid enlargement, no adenopathy. CHEST: No chest wall deformity. Symmetrical expansion. LUNGS: Equal air entry with no crackles, wheeze, rhonchi or dullness. CVS: Regular rate and rhythm, normal S1 and S2, no gallops, no murmurs, no rubs ABDOMEN: Soft, nontender. No hepatosplenomegaly, normal bowel sounds, no guarding or rigidity. EXTREMITIES: No clubbing, no edema, no cyanosis, 2+ pulses and upper and lower extremities. MUSCULOSKELETAL: Muscle strength and tone normal. SPINE: No scoliosis or deformity SKIN: No rashes CENTRAL NERVOUS SYSTEM: Alert and oriented -3. No focal deficits, tone is normal in all 4 extremities. PSYCHIATRIC: Alert and oriented -3. Appropriate affect. Intact judgment and insight. - Labs CBC & Chem 7: 03/12/20 06:43 03/12/20 06:43 Labs: Abnormal Lab Results - Last 24 Hours (Table) 03/11/20 03/11/20 03/12/20 Range/Units 16:42 20:48 06:43 WBC 11.0 H (3.8-10.6) k/uL Neutrophils # 10.1 H (1.3-7.7) k/uL Lymphocytes # 0.5 L (1.0-4.8) k/uL Creatinine (0.6-1.5) mg/dL BUN/Creatinine Ratio (12.00-20.00) Ratio Glucose (70-110) mg/dL POC Glucose (mg/dL) 123 H 190 H (75-99) mg/dL Calcium (8.7-10.3) mg/dL 03/12/20 03/12/20 03/12/20 Range/Units 06:43 06:58 11:21 WBC (3.8-10.6) k/uL Neutrophils # (1.3-7.7) k/uL Lymphocytes # (1.0-4.8) k/uL Creatinine 0.3 L (0.6-1.5) mg/dL BUN/Creatinine Ratio 60.00 H (12.00-20.00) Ratio Glucose 112 H (70-110) mg/dL POC Glucose (mg/dL) 118 H 137 H (75-99) mg/dL Calcium 8.6 L (8.7-10.3) mg/dL Microbiology - Last 24 Hours (Table) 03/08/20 20:06 Blood Culture - Preliminary Blood No Growth after 72 hours 03/08/20 18:28 Blood Culture - Preliminary Blood No Growth after 72 hours 03/09/20 03:31 Gram Stain - Final Sputum Sputum Culture - Final Assessment and Plan Plan: Assessment: 1 Purulent tracheobronchitis, sputum culture pending, CoVID screen negative 2 Leukocytosis secondary to above, improved 3 Hyponatremia, corrected 4 History of hypertension 5 Dementia Plan Patient has been stable overnight, no acute events, no specific complaints, no worsening dyspnea, patient is on room air, no significant fluid identified on ultrasound the chest, patient has been treated with empiric antibiotics, she's been afebrile, no complaints of cough and congestion. Anticipate discharge to subacute rehab possibly today or in the next 24 hours I performed a history & physical examination of the patient and discussed their management with my nurse practitioner, Merlene Wood. I reviewed the nurse practitioner's note and agree with the documented findings and plan of care. Lung sounds are positive for clear breath sounds. The findings and the impression was discussed with the patient. I attest to the documentation by the nurse practitioner. Time with Patient: Less than 30
--- NOTE | 2020-03-13 09:49 | DS ---
DISCHARGE SUMMARY DATE OF SERVICE: 03/12/2020 FINAL DIAGNOSES: 1. Chronic obstructive pulmonary disease acute exacerbation, possibly acute purulent tracheobronchitis with possible acute bronchopneumonia bilaterally. 2. Left pleural effusion, improved. 3. Hyponatremia. 4. Increased WBC. 5. Hypokalemia. 6. History of CVA, TIA. 7. History of dementia. 8. Hypertension. 9. History of recent fall and injury to the rib and right ankle. 10.History of hernia repair. 11.Gait dysfunction. 12.FULL CODE with instructions: DISCHARGE DISPOSITION: The patient will be discharged in a stable condition with guarded prognosis. Discharged cleared by Pulmonology. HISTORY OF PRESENT ILLNESS: This is an 89-year-old woman with a past medical history of multiple medical problems admitted with bronchopneumonia, pleural effusion and multiple other medical issues. Will be treated with IV antibiotics, bronchodilators and steroids. Patient improved significantly. Dr. Paige saw the patient, cleared the patient for discharge. On exam, vitals are stable. CARDIOVASCULAR SYSTEM: S1, S2. ABDOMEN: Soft. NERVOUS SYSTEM: No focal deficits. DISCHARGE ADVICE: 1. Discharge diet is cardiac diet. 2. Activity limited until followup. 3. Follow up with Dr. Lopez in 2-3 days. 4. Follow up with pulmonology as mentioned earlier. DISCHARGE MEDICATIONS: 1. Aricept 5 mg p.o. q.h.s. 2. Aspirin 81 mg q.h.s. 3. Norvasc 2.5 mg daily. 4. Tylenol p.r.n. 5. DuoNeb q.i.d. and p.r.n. 6. Prednisone taper 40 mg daily for 3 days, 30 for 3 days, 20 for 3 days 10 for 3 days. 7. Protonix 40 mg daily. 8. Symbicort 1 puff b.i.d. 9. Zithromax 500 mg p.o. daily for 5 days. MMODL / IJN: [id number] /
== END 2020-03-12 14:53 | disposition home health service (06) | DRG 190 ==
LOC: EC 17:32 → 4SSUR 19:27
PROVIDERS: ADMIT Hospitalist; ATTEND Hospitalist
DX: J44.1 Chronic obstructive pulmonary disease with (acute) exacerbation (principal); J18.0 Bronchopneumonia, unspecified organism; J90 Pleural effusion, not elsewhere classified; J98.11 Atelectasis; E87.1 Hypo-osmolality and hyponatremia; J44.0 Chronic obstructive pulmonary disease with (acute) lower respiratory infection; J20.9 Acute bronchitis, unspecified; E87.6 Hypokalemia; F03.90 Unspecified dementia, unspecified severity, without behavioral disturbance, psychotic disturbance, mood disturbance, and anxiety; I10 Essential (primary) hypertension; Z20.828 Contact with and (suspected) exposure to other viral communicable diseases; M21.371 Foot drop, right foot; S22.31XS Fracture of one rib, right side, sequela; S82.891S Other fracture of right lower leg, sequela; W19.XXXS Unspecified fall, sequela; Z79.82 Long term (current) use of aspirin; Z79.899 Other long term (current) drug therapy; Z86.73 Personal history of transient ischemic attack (TIA), and cerebral infarction without residual deficits; Z88.0 Allergy status to penicillin; R26.9 Unspecified abnormalities of gait and mobility
CPT/HCPCS: 36415; 71046; 76604; 80048; 80053; 82550; 83605; 83735; 83880; 84100; 84132; 84484; 85025; 85610; 85730; 87040; 87070; 87205; 93005; 93306; 96361; 96365; 96367; 99285

== ENCOUNTER 2020-06-03 15:00 | Observation (INO) | payer MEDICARE ==
--- NOTE | 2020-06-03 15:13 | ED ---
General Adult HPI - General Chief complaint: Anxiety Stated complaint: tachycardia Time Seen by Provider: 06/03/20 15:04 Source: patient, EMS, RN notes reviewed Mode of arrival: EMS Limitations: altered mental status - History of Present Illness Initial comments: Patient is a pleasant 89-year-old female presenting to the emergency department for episode of chest discomfort. Patient is a poor historian. Onset of symptoms prior to arrival. Patient states it just lasted a few minutes then resolved. Discomfort was sharp. Patient denies any symptoms at this time. Patient did have a little bit of associated dyspnea. No nausea or diaphoresis. Unclear if history of similar symptoms previously. No leg pain or leg swelling - Related Data Home Medications Medication Instructions Recorded Confirmed Acetaminophen Tab [Tylenol] 650 mg PO Q6H PRN 03/08/20 06/03/20 Donepezil [Aricept] 5 mg PO HS@199903/08/20 06/03/20 Sodium Chloride Tab 1 gm PO BID@08,199903/08/20 06/03/20 amLODIPine [Norvasc] 2.5 mg PO DAILY@0800 03/08/20 06/03/20 Aspirin EC [Ecotrin Low Dose] 81 mg PO HS@199906/03/20 06/03/20 Budesonide/Formoterol Fumarate 1 puff INHALATION RT-BID@799,199906/03/20 06/03/20 [Symbicort 160-4.5 Mcg Inhaler] Ipratropium-Albuterol Nebulize 3 ml INHALATION RT-QID PRN 06/03/20 06/03/20 [Duoneb 0.5 mg-3 mg/3 ml Soln] Allergies Allergy/AdvReac Type Severity Reaction Status Date / Time Penicillins Allergy Rash/Hives Verified 06/03/20 16:31 Review of Systems ROS Statement: Those systems with pertinent positive or pertinent negative responses have been documented in the HPI. ROS Other: All systems not noted in ROS Statement are negative. Constitutional: Denies: fever Eyes: Denies: eye pain ENT: Denies: ear pain Respiratory: Denies: cough Cardiovascular: Reports: as per HPI, chest pain Endocrine: Denies: fatigue Gastrointestinal: Denies: abdominal pain Genitourinary: Denies: dysuria Musculoskeletal: Denies: back pain Skin: Denies: rash Neurological: Denies: weakness Past Medical History Past Medical History: Asthma, CVA/TIA, Dementia, Hypertension Additional Past Medical History / Comment(s): Fall 01/14/2020- in ICU at [place]. injury to left ribs and right ankle. right ankle foot drop residual. History of Any Multi-Drug Resistant Organisms: None Reported Past Surgical History: Hernia Repair Past Anesthesia/Blood Transfusion Reactions: No Reported Reaction Past Psychological History: No Psychological Hx Reported Smoking Status: Never smoker Past Alcohol Use History: None Reported Past Drug Use History: None Reported General Exam Limitations: altered mental status General appearance: alert, in no apparent distress Head exam: Present: atraumatic, normocephalic Eye exam: Present: normal appearance, PERRL Neck exam: Present: normal inspection Respiratory exam: Present: normal lung sounds bilaterally. Absent: chest wall tenderness Cardiovascular Exam: Present: regular rate, normal rhythm Expanded Peripheral pulses: 2+: Radial (R), Radial (L), Dorsalis Pedis (R), Dorsalis Pedis (L) GI/Abdominal exam: Present: soft. Absent: tenderness Extremities exam: Present: normal inspection. Absent: pedal edema, calf tenderness Neurological exam: Present: alert Psychiatric exam: Present: normal affect, normal mood Skin exam: Present: normal color Course Vital Signs 06/03/20 15:06 Temperature 98.3 F Pulse Rate 100 Respiratory 16 Rate Blood Pressure 167/93 O2 Sat by Pulse 99 Oximetry Medical Decision Making - Medical Decision Making Patient reevaluated. Patient and family updated on results and plan. Case discussed with practitioner Bryant, covering with Dr. De La Torre, who will admit covering for Dr. Victoria. - Lab Data Result diagrams: 06/03/20 15:31 06/03/20 15:31 Lab Results 06/03/20 06/03/20 06/03/20 Range/Units 15:31 15:31 15:31 WBC 7.9 (3.8-10.6) k/uL RBC 4.39 (3.80-5.40) m/uL Hgb 13.7 (11.4-16.0) gm/dL Hct 39.6 (34.0-46.0) % MCV 90.0 (80.0-100.0) fL MCH 31.2 (25.0-35.0) pg MCHC 34.7 (31.0-37.0) g/dL RDW 13.7 (11.5-15.5) % Plt Count 316 (150-450) k/uL MPV 6.6 Neutrophils % 80 % Lymphocytes % 11 % Monocytes % 6 % Eosinophils % 1 % Basophils % 0 % Neutrophils # 6.3 (1.3-7.7) k/uL Lymphocytes # 0.9 L (1.0-4.8) k/uL Monocytes # 0.5 (0-1.0) k/uL Eosinophils # 0.1 (0-0.7) k/uL Basophils # 0.0 (0-0.2) k/uL PT 9.6 (9.0-12.0) sec INR 0.9 (<1.2) APTT 25.9 (22.0-30.0) sec Sodium 133 L (137-145) mmol/L Potassium 3.8 (3.5-5.1) mmol/L Chloride 104 (98-107) mmol/L Carbon Dioxide 24 (22-30) mmol/L Anion Gap 5 mmol/L BUN 14 (7-17) mg/dL Creatinine 0.39 L (0.52-1.04) mg/dL Est GFR (CKD-EPI)AfAm >90 (>60 ml/min/1.73 sqM) Est GFR (CKD-EPI)NonAf >90 (>60 ml/min/1.73 sqM) Glucose 102 H (74-99) mg/dL Calcium 9.2 (8.4-10.2) mg/dL Magnesium 1.8 (1.6-2.3) mg/dL Total Bilirubin 0.8 (0.2-1.3) mg/dL AST 26 (14-36) U/L ALT 14 (4-34) U/L Alkaline Phosphatase 74 (38-126) U/L Troponin I (0.000-0.034) ng/mL Total Protein 6.2 L (6.3-8.2) g/dL Albumin 3.7 (3.5-5.0) g/dL 06/03/20 Range/Units 15:31 WBC (3.8-10.6) k/uL RBC (3.80-5.40) m/uL Hgb (11.4-16.0) gm/dL Hct (34.0-46.0) % MCV (80.0-100.0) fL MCH (25.0-35.0) pg MCHC (31.0-37.0) g/dL RDW (11.5-15.5) % Plt Count (150-450) k/uL MPV Neutrophils % % Lymphocytes % % Monocytes % % Eosinophils % % Basophils % % Neutrophils # (1.3-7.7) k/uL Lymphocytes # (1.0-4.8) k/uL Monocytes # (0-1.0) k/uL Eosinophils # (0-0.7) k/uL Basophils # (0-0.2) k/uL PT (9.0-12.0) sec INR (<1.2) APTT (22.0-30.0) sec Sodium (137-145) mmol/L Potassium (3.5-5.1) mmol/L Chloride (98-107) mmol/L Carbon Dioxide (22-30) mmol/L Anion Gap mmol/L BUN (7-17) mg/dL Creatinine (0.52-1.04) mg/dL Est GFR (CKD-EPI)AfAm (>60 ml/min/1.73 sqM) Est GFR (CKD-EPI)NonAf (>60 ml/min/1.73 sqM) Glucose (74-99) mg/dL Calcium (8.4-10.2) mg/dL Magnesium (1.6-2.3) mg/dL Total Bilirubin (0.2-1.3) mg/dL AST (14-36) U/L ALT (4-34) U/L Alkaline Phosphatase (38-126) U/L Troponin I <0.012 (0.000-0.034) ng/mL Total Protein (6.3-8.2) g/dL Albumin (3.5-5.0) g/dL - Radiology Data Radiology results: image reviewed (Chest x-ray shows old rib fractures. No definite acute abnormality) Disposition Clinical Impression: Chest pain Disposition: ADMITTED IP TO THIS [facility] Is patient prescribed a controlled substance at d/c from ED?: No Referrals: Chaparrita Lopez MD [Primary Care Provider] - 1-2 days Decision Time: 17:13
[2020-06-03 15:40] LABS: Basophils % (A) 0 %; Eosinophils # (A) 0.1 k/uL (0-0.7); Eosinophils % (A) 1 %; HCT 39.6 % (34.0-46.0); HGB 13.7 gm/dL (11.4-16.0); Lymphocytes # (A) 0.9 k/uL (1.0-4.8); Lymphocytes % (A) 11 %; MCH 31.2 pg (25.0-35.0); MCHC 34.7 g/dL (31.0-37.0); Mean Platelet Volume 6.6; Monocytes # (A) 0.5 k/uL (0-1.0); Monocytes % (A) 6 %; Neutrophils # (A) 6.3 k/uL (1.3-7.7); Neutrophils % (A) 80 %; Platelet Count 316 k/uL (150-450); RBC 4.39 m/uL (3.80-5.40); RDW 13.7 % (11.5-15.5); WBC 7.9 k/uL (3.8-10.6)
[2020-06-03 15:48] LABS: ALT 14 U/L (4-34); AST 26 U/L (14-36); African American GFR (CKD) >90 (>60 ml/min/1.73 sqM); Albumin 3.7 g/dL (3.5-5.0); Alkaline Phosphatase 74 U/L (38-126); Anion Gap 5 mmol/L; Blood Urea Nitrogen 14 mg/dL (7-17); Calcium 9.2 mg/dL (8.4-10.2); Carbon Dioxide 24 mmol/L (22-30); Chloride 104 mmol/L (98-107); Glucose 102 mg/dL (74-99); Magnesium 1.8 mg/dL (1.6-2.3); Non-African American GFR(CKD) >90 (>60 ml/min/1.73 sqM); Potassium 3.8 mmol/L (3.5-5.1); Sodium 133 mmol/L (137-145); Total Bilirubin 0.8 mg/dL (0.2-1.3); Total Protein 6.2 g/dL (6.3-8.2)
[2020-06-03 15:51] LABS: INR 0.9 (<1.2); Partial Thromboplastin Time 25.9 sec (22.0-30.0); Prothrombin Time 9.6 sec (9.0-12.0)
--- NOTE | 2020-06-03 16:25 | XR ---
EXAMINATION TYPE: XR chest 2V DATE OF EXAM: 06/03/2020 COMPARISON: 03/09/2020 HISTORY: 89-year-old female with chest pain TECHNIQUE: AP and lateral views FINDINGS: Multiple old posterior left rib fracture deformities with some associated superimposition shadows. He art normal size. Atherosclerotic arch calcifications. Mild interstitial prominence is unchanged. No f rank consolidation or pleural effusion. Loss of the subacromial space on both sides suggest chronic l ow thickness rotator cuff tears. Wedge deformity of the midthoracic vertebral body, unchanged from . IMPRESSION: Old left-sided rib fracture deformities. Full-thickness rotator cuff tears on both sides. There is sc attered strandy atelectasis. No definite acute process.
[2020-06-03] MEDS: ASPIRIN 81 MG PO STA ×2 (16:46→19:43)
[2020-06-03] MEDS ORDERED: NITROGLYCERIN SL TABS 0.4 MG TAB SUBLINGUAL PRN (17:13)
[2020-06-03 23:55] VITALS: RESP 18
[2020-06-04] MEDS ORDERED: amLODIPine 2.5 MG TAB PO SCH (09:00)
[2020-06-04] MEDS ORDERED: ASPIRIN 325 MG TAB PO SCH (09:00)
[2020-06-04] MEDS ORDERED: IPRATROPIUM-ALBUTEROL 3 ML NEB INHALATION PRN (09:29)
[2020-06-04] MEDS ORDERED: ACETAMINOPHEN TAB 325 MG TAB PO PRN (09:29)
--- NOTE | 2020-06-04 10:11 | P.HPIM ---
History of Present Illness 89-year-old very pleasant female came in with complaints of chest discomfort of mild severity on the left side of the chest spasm like Sensation patient did describe some pleuritic competent no associated shortness of breath lighthea dedness or diaphoresis. Patient is bit of poor historian because of her hearing problem although her memory is very good. Patient did complain of chest pain when she woke up and it was like gastroesophageal reflux disease to cardiology nurse practitioner. Patient EKG did not show any acute ST-T wave changes troponins are negative. Patient had an echocardiogram earlier this year which did not show any significant abnormality. Patient the blood pressure is bit elevated but patient is on sodium tablets for hyponatremia which was started by her PCP. Patient is a resident of [facility] Review of Systems REVIEW OF SYSTEMS: CONSTITUTIONAL: No fever, no malaise, no fatigue. HEENT: No recent visual problems or hearing problems. Denied any sore throat. CARDIOVASCULAR: No orthopnea, PND, no palpitations, no syncope. PULMONARY: No shortness of breath, no cough, no hemoptysis. GASTROINTESTINAL: No diarrhea, no nausea, no vomiting, no abdominal pain. NEUROLOGICAL: No headaches, no weakness, no numbness. HEMATOLOGICAL: Denies any bleeding or petechiae. GENITOURINARY: Denies any burning micturition, frequency, or urgency. MUSCULOSKELETAL/RHEUMATOLOGICAL: Denies any joint pain, swelling, or any muscle pain. ENDOCRINE: Denies any polyuria or polydipsia. The rest of the 14-point review of systems is negative. Past Medical History Past Medical History: Asthma, CVA/TIA, Dementia, Hypertension, Osteoarthritis (OA), Pneumonia Additional Past Medical History / Comment(s): Fall 01/14/2020- in ICU at [place]. injury to left ribs and right ankle. right ankle foot drop residual. 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 Newly resides at [facility], currently on a trial period. Smoking Status: Never smoker Past Alcohol Use History: None Reported Past Drug Use History: None Reported - Past Family History Mother Family Medical History: No Reported History Father Family Medical History: Myocardial Infarction ([place]) Medications and Allergies Home Medications Medication Instructions Recorded Confirmed Type Acetaminophen Tab [Tylenol] 650 mg PO Q6H PRN 03/08/20 06/03/20 History Donepezil [Aricept] 5 mg PO HS@199903/08/20 06/03/20 History Sodium Chloride Tab 1 gm PO BID@08,199903/08/20 06/03/20 History amLODIPine [Norvasc] 2.5 mg PO DAILY@0800 03/08/20 06/03/20 History Aspirin EC [Ecotrin Low Dose] 81 mg PO HS@199906/03/20 06/03/20 History Budesonide/Formoterol Fumarate 1 puff INHALATION RT-BID@799,199906/03/20 06/03/20 History [Symbicort 160-4.5 Mcg Inhaler] Ipratropium-Albuterol Nebulize 3 ml INHALATION RT-QID PRN 06/03/20 06/03/20 History [Duoneb 0.5 mg-3 mg/3 ml Soln] Omeprazole [PriLOSEC] 20 mg PO AC-BRKFST #14 capsule. 06/04/20 Rx Allergies Allergy/AdvReac Type Severity Reaction Status Date / Time Penicillins Allergy Rash/Hives Verified 06/03/20 16:31 Physical Exam Vitals: Vital Signs Temp Pulse Pulse Resp BP BP BP 06/04/20 04:00 98.1 F 85 18 157/59 06/04/20 02:00 90 18 06/04/20 00:00 98.1 F 90 18 169/92 06/03/20 20:00 98.0 F 96 18 199/90 206/95 06/03/20 17:00 74 06/03/20 15:06 98.3 F 100 16 167/93 Pulse Ox 06/04/20 04:00 96 06/04/20 02:00 06/04/20 00:00 97 06/03/20 20:00 99 06/03/20 17:00 06/03/20 15:06 99 Intake and Output 06/03/20 06/04/20 06/04/20 22:59 06:59 14:59 Intake Total 120 Balance 120 Intake: Oral 120 Other: Voiding Method Toilet Toilet # Voids 1 3 Weight 49.895 kg 46.2 kg PHYSICAL EXAMINATION: GENERAL: The patient is alert and oriented x3, not in any acute distress. Thin built elderly female HEENT: Pupils are round and equally reacting to light. EOMI. No scleral icterus. No conjunctival pallor. Normocephalic, atraumatic. No pharyngeal erythema. No thyromegaly. CARDIOVASCULAR: S1 and S2 present. No murmurs, rubs, or gallops. PULMONARY: Chest is clear to auscultation, no wheezing or crackles. ABDOMEN: Soft, nontender, nondistended, normoactive bowel sounds. No palpable organomegaly. MUSCULOSKELETAL: No joint swelling or deformity. EXTREMITIES: No cyanosis, clubbing, or pedal edema. NEUROLOGICAL: Gross neurological examination did not reveal any focal deficits. SKIN: No rashes. Results CBC & Chem 7: 06/03/20 15:31 12 15:31 Labs: Abnormal Lab Results - Last 24 Hours (Table) 06/03/20 06/03/20 Range/Units 15:31 15:31 Lymphocytes # 0.9 L (1.0-4.8) k/uL Sodium 133 L (137-145) mmol/L Creatinine 0.39 L (0.52-1.04) mg/dL Glucose 102 H (74-99) mg/dL Total Protein 6.2 L (6.3-8.2) g/dL Thrombosis Risk Factor Assmnt - Choose All That Apply Any of the Below Risk Factors Present?: No Each Risk Factor Represents 3 Points: Age 75 years or older Thrombosis Risk Factor Assessment Total Risk Factor Score: 3 Thrombosis Risk Factor Assessment Level: Moderate Risk Assessment and Plan Plan: -Chest pain rule out acute coronary syndromes, patient will be evaluated by cardiology. If patient is cleared by cardiology patient will be discharged today. chest pain has some pleuritic competent because of which will often d-dimer and if that's negative patient will be discharged today. 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
[2020-06-04 10:14] LABS: Cholesterol 190 mg/dL (<200); HDL Cholesterol 67 mg/dL (40-60); LDL Cholesterol,Calculated 108 mg/dL (0-99); Triglycerides 75 mg/dL (<150)
[2020-06-04 10:19] VITALS: TEMP 98
[2020-06-04 10:32] VITALS: BMI 17.4
--- NOTE | 2020-06-04 11:26 | P.CRDCN ---
History of Present Illness Consult date: 06/04/20 History of present illness: CHIEF COMPLAINT: Chest pain HISTORY OF PRESENT ILLNESS: This is a 89-year-old female with a past medical history significant for dementia, hypertension, and osteoarthritis. Patient does not follow with a pharmaceutical analyst. We have been asked to see the patient in consultation for chest pain. Patient examined this morning at the bedside. Patient states yesterday after she woke up and began having breakfast she started having some midsternal chest pain. She denied any nausea or vomiting. Denies dizziness or lightheadedness. Denied any radiation of the pain. She states the pain lasted less than 30 minutes. She does report the pain is worse with deep inspiration. She has had no further chest pain since that time. She is resting comfortably in bed. DIAGNOSTICS: EKG reveals sinus rhythm with no evidence of acute ischemia Chest xray old left-sided rib fracture deformities. Full thickness rotator cuff tears on both sides. There is scattered strandy atelectasis. No definite acute process. Laboratory data: WBC 7.9. Hemoglobin 13.7. Platelet count 316. Sodium 133. Potassium 3.8. BUN 14. Creatinine 0.39. Magnesium 1.8. Troponin negative 3. Current home cardiac medications include Norvasc 2.5 mg daily Echocardiogram completed in February 2020 revealed ejection fraction 55-60%, mitral regurgitation, and mild tricuspid regurgitation REVIEW OF SYSTEMS: At the time of my exam: CONSTITUTIONAL: Denies fever or chills. HEENT: Denies blurred vision, vision changes, or eye pain. Denies hemoptysis CARDIOVASCULAR: Denies chest pain, orthopnea, PND or palpitations RESPIRATORY: No shortness of breath. GASTROINTESTINAL: Denies abdominal pain. Denies nausea or vomiting. HEMATOLOGIC: Denies bleeding disorders. GENITOURINARY: Denies any blood in urine. SKIN: Denies pruitis. Denies rash. PHYSICAL EXAM: VITAL SIGNS: Reviewed. GENERAL: Well-developed in no acute distress. HEENT: Head is normocephalic. Pupils are equal, round. Sclerae anicteric. Mucous membranes of the mouth are moist. Neck supple. No JVD or thyromegaly LUNGS: Respirations even and unlabored. Lungs essentially clear to auscultation bilaterally. HEART: Regular rate and rhythm. S1 and S2 heard. ABDOMEN: Soft. Nondistended. Nontender. EXTREMITIES: Normal range of motion. No clubbing or cyanosis. Peripheral pulses intact. No lower extremity edema NEUROLOGIC: Awake and alert. Oriented x 3. ASSESSMENT: Chest pain, atypical, troponin negative 3 Hypertension Osteoarthritis Dementia PLAN: An acute coronary event ruled out No need to repeat echocardiogram as this was performed in February 2020 Resume home dose of Norvasc. Monitor blood pressure D-dimer ordered per internal medicine. Await results Further recommendations pending patient's course Nurse practitioner note has been reviewed by physician. Signing provider agrees with the documented findings, assessment, and plan of care. Past Medical History Past Medical History: Asthma, CVA/TIA, Dementia, Hypertension, Osteoarthritis (OA), Pneumonia Additional Past Medical History / Comment(s): Fall 01/14/2020- in ICU at [place]. injury to left ribs and right ankle. right ankle foot drop residual. 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 Newly resides at [facility], currently on a trial period. Smoking Status: Never smoker Past Alcohol Use History: None Reported Past Drug Use History: None Reported - Past Family History Mother Family Medical History: No Reported History Father Family Medical History: Myocardial Infarction ([place]) Medications and Allergies Home Medications Medication Instructions Recorded Confirmed Type Acetaminophen Tab [Tylenol] 650 mg PO Q6H PRN 03/08/20 06/03/20 History Donepezil [Aricept] 5 mg PO HS@199903/08/20 06/03/20 History Sodium Chloride Tab 1 gm PO BID@08,199903/08/20 06/03/20 History amLODIPine [Norvasc] 2.5 mg PO DAILY@00 03/08/20 06/03/20 History Aspirin EC [Ecotrin Low Dose] 81 mg PO HS@199906/03/20 06/03/20 History Budesonide/Formoterol Fumarate 1 puff INHALATION RT-BID@08,199906/03/20 06/03/20 History [Symbicort 160-4.5 Mcg Inhaler] Ipratropium-Albuterol Nebulize 3 ml INHALATION RT-QID PRN 06/03/20 06/03/20 History [Duoneb 0.5 mg-3 mg/3 ml Soln] Omeprazole [PriLOSEC] 20 mg PO AC-BRKFST #14 capsule. 06/04/20 Rx Allergies Allergy/AdvReac Type Severity Reaction Status Date / Time Penicillins Allergy Rash/Hives Verified 06/03/20 16:31 Physical Exam Vitals: Vital Signs Temp Pulse Pulse Resp BP BP BP 06/04/20 08:00 98 F 94 18 172/73 06/04/20 04:00 98.1 F 85 18 157/59 06/04/20 02:00 90 18 06/04/20 00:00 98.1 F 90 18 169/92 06/03/20 20:00 98.0 F 96 18 199/90 206/95 06/03/20 17:00 74 06/03/20 15:06 98.3 F 100 16 167/93 Pulse Ox 06/04/20 08:00 97 06/04/20 04:00 96 06/04/20 02:00 06/04/20 00:00 97 06/03/20 20:00 99 06/03/20 17:00 06/03/20 15:06 99 Intake and Output 06/03/20 06/04/20 06/04/20 22:59 06:59 14:59 Intake Total 120 Balance 120 Intake: Oral 120 Other: Voiding Method Toilet Toilet # Voids 1 3 Weight 49.895 kg 46.2 kg 46.2 kg Results 06/03/20 15:31 06/03/20 15:31 Cardiac Enzymes 06/03/20 06/03/20 06/03/20 Range/Units 15:31 15:31 18:17 AST 26 (14-36) U/L Troponin I <0.012 <0.012 (0.000-0.034) ng/mL 06/03/20 Range/Units 21:09 AST (14-36) U/L Troponin I <0.012 (0.000-0.034) ng/mL Coagulation 06/03/20 Range/Units 15:31 PT 9.6 (9.0-12.0) sec APTT 25.9 (22.0-30.0) sec Lipids 06/04/20 Range/Units 09:15 Triglycerides 75 (<150) mg/dL Cholesterol 190 (<200) mg/dL HDL Cholesterol 67 H (40-60) mg/dL CBC 06/03/20 Range/Units 15:31 WBC 7.9 (3.8-10.6) k/uL RBC 4.39 (3.80-5.40) m/uL Hgb 13.7 (11.4-16.0) gm/dL Hct 39.6 (34.0-46.0) % Plt Count 316 (150-450) k/uL Comprehensive Metabolic Panel 06/03/20 Range/Units 15:31 Sodium 133 L (137-145) mmol/L Potassium 3.8 (3.5-5.1) mmol/L Chloride 104 (98-107) mmol/L Carbon Dioxide 24 (22-30) mmol/L BUN 14 (7-17) mg/dL Creatinine 0.39 L (0.52-1.04) mg/dL Glucose 102 H (74-99) mg/dL Calcium 9.2 (8.4-10.2) mg/dL AST 26 (14-36) U/L ALT 14 (4-34) U/L Alkaline Phosphatase 74 (38-126) U/L Total Protein 6.2 L (6.3-8.2) g/dL Albumin 3.7 (3.5-5.0) g/dL Current Medications Generic Name Dose Route Start Last Admin Trade Name Freq PRN Reason Stop Dose Admin Acetaminophen 650 mg 06/04/20 09:29 Acetaminophen Tab 325 Mg Tab PO Q6H PRN Pain Albuterol/Ipratropium 3 ml 06/04/20 09:29 Ipratropium-Albuterol 3 Ml Neb INHALATION RT-QID PRN Shortness Of Breath Amlodipine Besylate 2.5 mg 06/04/20 09:00 06/04/20 10:33 Amlodipine 2.5 Mg Tab PO 2.5 mg DAILY@0800 [facility] Administration Aspirin 81 mg 06/05/20 09:00 Aspirin 81 Mg PO DAILY [facility] Budesonide/Formoterol Fumarate 1 puff 06/04/20 20:00 Symbicort 160-4.5 Mcg Inhaler INHALATION RT-BID@0800,1999 [facility] Donepezil HCl 5 mg 06/04/20 20:00 Donepezil 5 Mg Tab PO HS@1999 [facility] Nitroglycerin 0.4 mg 06/03/20 17:13 Nitroglycerin Sl Tabs 0.4 Mg Tab SUBLINGUAL Q5M PRN Chest Pain Sodium Chloride 1 gm 06/04/20 20:00 Sodium Chloride Tab 1 Gm Tab PO BID@0800,1999 [facility] Intake and Output 06/03/20 06/04/20 06/04/20 22:59 06:59 14:59 Intake Total 120 Balance 120 Intake: Oral 120 Other: Voiding Method Toilet Toilet # Voids 1 3 Weight 49.895 kg 46.2 kg 46.2 kg Patient Weight 06/05/20 06:59 Weight 46.2 kg 06/03/20 15:31 06/03/20 15:31
[2020-06-04 12:12] VITALS: PULSE 100
[2020-06-04] MEDS: amLODIPine 5 MG TAB PO STA ×2 (13:50→14:25)
[2020-06-04 15:00] VITALS: BP 153/86
[2020-06-04] MEDS ORDERED: SODIUM CHLORIDE TAB 1 GM TAB PO SCH (20:00)
[2020-06-04] MEDS ORDERED: DONEPEZIL 5 MG TAB PO SCH (20:00)
[2020-06-04] MEDS ORDERED: SYMBICORT 160-4.5 MCG INHALER INHALATION SCH (20:00)
[2020-06-05] MEDS ORDERED: amLODIPine 5 MG TAB PO SCH (09:00)
[2020-06-05] MEDS ORDERED: ASPIRIN 81 MG PO SCH (09:00)
== END 2020-06-04 16:02 | disposition home or self-care (01) ==
LOC: EC 15:00 → 3SCARD 17:13
PROVIDERS: ADMIT Hospitalist; ATTEND Hospitalist
DX: R07.89 Other chest pain (principal); F03.90 Unspecified dementia, unspecified severity, without behavioral disturbance, psychotic disturbance, mood disturbance, and anxiety; I10 Essential (primary) hypertension; J45.909 Unspecified asthma, uncomplicated; K21.9 Gastro-esophageal reflux disease without esophagitis; E87.1 Hypo-osmolality and hyponatremia; J98.11 Atelectasis; M89.49 Other hypertrophic osteoarthropathy, multiple sites; M75.122 Complete rotator cuff tear or rupture of left shoulder, not specified as traumatic; M75.121 Complete rotator cuff tear or rupture of right shoulder, not specified as traumatic; M21.371 Foot drop, right foot; Z79.82 Long term (current) use of aspirin; Z79.51 Long term (current) use of inhaled steroids; Z79.899 Other long term (current) drug therapy; Z88.0 Allergy status to penicillin; Z86.73 Personal history of transient ischemic attack (TIA), and cerebral infarction without residual deficits; Z87.828 Personal history of other (healed) physical injury and trauma; Z87.81 Personal history of (healed) traumatic fracture; Z91.81 History of falling; Z82.49 Family history of ischemic heart disease and other diseases of the circulatory system
CPT/HCPCS: 93005 ×2; 99285; 36415; 85379; 80061; 80053; 83735; 84484; 85025; 85610; 85730; 71046; G0378 ×2